=== PATIENT | male | born 1980 | race Caucasian/White ===

== ENCOUNTER → 2017-02-20 | Day surgery (SDC) | payer MEDICAID ==
[~2017-02-20] VITALS: Ht 172.7 cm; Wt 54.5 kg
[~2017-02-20] MED LIST: AMPICILLIN 1 GM/NS 100 ML IV SCH; BACT800T5 PO; BELLADONNA ALKALOIDS/OPIUM 60 MG SUPP RECTAL ONE; CHLORHEXIDINE GLUCONATE 2 % 1 PACK (2 CLOTHS) TOPICAL PRN; DEXAMETHASONE SOD PHOS 4 MG/ML VIAL IV ONE; DO NOT ADM ANY ANTICOAGULANT DRUGS PRN; ESMOLOL HCL 100 MG/10 ML VIAL IV ONE; GENTAMICIN INJ 240 MG in SODIUM CHLORIDE 0.9% INJ 100 ML IV SCH; GLYCOPYRROLATE 1 MG/5 ML SYRINGE IV PUSH ONE; INSULIN HUMAN REGULAR 1,000 UNITS/10 ML VIAL SQ PRN; KEPP10002 PEG; LACTATED RINGER'S 1000 ML IV PRN; LIDOCAINE HCL 1% PF 5 ML AMPULE OTHER ONE; METO25TA3 PEG; METOPROLOL TARTRATE 25 MG TAB PO PRN; MORP1SOL3 PEG; MORPHINE SULFATE 2 MG/ML INJ ONE; MORPHINE SULFATE 4 MG/ML INJ IV PRN; NEOSTIGMINE 3 MG/3 ML SYR IV ONE; NITR1SUS2 PO; ONDANSETRON HCL 4 MG/2 ML VIAL IV PUSH ONE; ONDANSETRON HCL 4 MG/2 ML VIAL IV PUSH PRN; PHENYLEPH/NS 1000 MCG/10 ML SYR IV ONE; POVIDONE IODINE 5% (ANTISEPSIS KIT) 4 APPLICATIONS EACH NARE PRN; PROPOFOL 200 MG/20 ML AMP IV ONE; ROCURONIUM INJ 50 MG/5 ML SYRINGE IV PUSH ONE; SODIUM CHLOR 0.9% 250 ML INJ 250 ML IV SCH; SODIUM CHLOR 0.9% 250 ML INJ 250 ML ONE; SODIUM CHLORID 0.9% 500 ML IV PRN; ePHEDrine/NS 25 MG/5 ML SYR IV ONE
[2017-02-20 11:43] LABS: AUTOMATED NEUTROPHIL # 2.8 TH/MM3 (1.8-7.7); BASOPHIL % 0.7 % (0.0-2.0); EOSINOPHIL % 0.9 % (0.0-4.0); HEMATOCRIT 37.7 % (39.0-51.0); HEMO FLAGS DIFF FINAL; LYMPHOCYTE # 2.2 TH/MM3 (1.0-4.8); MEAN CELL VOLUME 93.8 FL (80.0-100.0); MEAN CORPUSCULAR HEMOGLOBIN 33.3 PG (27.0-34.0); MEAN CORPUSCULAR HGB CONC 35.5 % (32.0-36.0); MONO % 6.3 % (0.0-8.0); NEUT % 52.1 % (16.0-70.0); PLATELET COUNT 426 TH/MM3 (150-450); RED BLOOD COUNT 4.02 MIL/MM3 (4.50-5.90); RED CELL DISTRIBUTION WIDTH 14.3 % (11.6-17.2); WHITE BLOOD COUNT 5.4 TH/MM3 (4.0-11.0)
--- NOTE | 2017-02-20 14:08 | PD.OP ---
Operative Report Date of Surgery: Feb 20, 2017 Preoperative Diagnosis: 2 cm bladder calculus Postoperative Diagnosis: Same Procedure: Urethral dilatation, cystoscopy litholapaxy with stone extraction Anesthesia: Gen. LMA Surgeon: Suman Thurman Boiler Fireman(s): None Resident Surgeon: None Operation and Findings: 36-year-old male sustained a traumatic brain injury in the past who developed a 2 cm bladder calculus. Risk and benefits were discussed with the family and the patient and family were willing to proceed. The patient was brought to operating room and identified by myself as Fede Call. His placement dorsal lithotomy position, prepped and draped in usual sterile fashion , received preprocedure antibiotics and general LMA anesthesia was administered. Urethral dilatation was performed starting with a 20 Tanzanian and going up to a 30 Tanzanian urethral sound. Then the 24 Tanzanian rigid nephroscope was passed into the bladder without difficulty. The large bladder stone was visualized. Using the cyber wand, the stone was then fragmented without difficulty and the residual particles were sucked through the tubing. The Elic evacuator was then used to remove any residual stone fragments. A 20 Tanzanian regular Montes was then passed in the bladder without difficulty. The patient tolerated the procedure well and was awoken and transferred to recovery in stable condition. He will follow up on Friday to undergo a void trial in the office. Suman Thurman DO Feb 20, 2017 14:08
[2017-02-20 16:24] VITALS: BP 107/69; PULSE 96; RESP 16; TEMP 96.5; O2SAT 98
== END | disposition home or self-care (01) ==
LOC: HSDC 10:31 → EDSTATUS 12:30
PROVIDERS: ATTEND Urology
DX: N21.0 Calculus in bladder (principal); I10 Essential (primary) hypertension; G40.909 Epilepsy, unspecified, not intractable, without status epilepticus; Z87.820 Personal history of traumatic brain injury; Z87.891 Personal history of nicotine dependence; Z99.3 Dependence on wheelchair; Z79.899 Other long term (current) drug therapy
CPT/HCPCS: 00910; 52317; 82365; 82370; 85025; 88300; J0290; J1100; J1580; J2270; J2370; J2405; J2710; J3010; J7050; J7120

== ENCOUNTER 2017-02-25 09:41 | Inpatient (IN) | payer MEDICAID ==
[2017-02-25] VITALS (15 sets, daily range): BP systolic 98–163; BP diastolic 57–78; PULSE 56–130; RESP 16–38; TEMP 97.5–100.3; O2SAT 90–100
[~2017-02-25] VITALS: Ht 175.3 cm; Wt 57.5 kg
[~2017-02-25 09:41] MED LIST changes: -AMPICILLIN 1 GM/NS 100 ML IV SCH; -BELLADONNA ALKALOIDS/OPIUM 60 MG SUPP RECTAL ONE; -CHLORHEXIDINE GLUCONATE 2 % 1 PACK (2 CLOTHS) TOPICAL PRN; -DEXAMETHASONE SOD PHOS 4 MG/ML VIAL IV ONE; -DO NOT ADM ANY ANTICOAGULANT DRUGS PRN; -ESMOLOL HCL 100 MG/10 ML VIAL IV ONE; -GENTAMICIN INJ 240 MG in SODIUM CHLORIDE 0.9% INJ 100 ML IV SCH; -GLYCOPYRROLATE 1 MG/5 ML SYRINGE IV PUSH ONE; -INSULIN HUMAN REGULAR 1,000 UNITS/10 ML VIAL SQ PRN; -LACTATED RINGER'S 1000 ML IV PRN; -LIDOCAINE HCL 1% PF 5 ML AMPULE OTHER ONE; -METOPROLOL TARTRATE 25 MG TAB PO PRN; -MORPHINE SULFATE 2 MG/ML INJ ONE; -MORPHINE SULFATE 4 MG/ML INJ IV PRN; -NEOSTIGMINE 3 MG/3 ML SYR IV ONE; -NITR1SUS2 PO; -ONDANSETRON HCL 4 MG/2 ML VIAL IV PUSH ONE; -ONDANSETRON HCL 4 MG/2 ML VIAL IV PUSH PRN; -PHENYLEPH/NS 1000 MCG/10 ML SYR IV ONE; -POVIDONE IODINE 5% (ANTISEPSIS KIT) 4 APPLICATIONS EACH NARE PRN; -PROPOFOL 200 MG/20 ML AMP IV ONE; -ROCURONIUM INJ 50 MG/5 ML SYRINGE IV PUSH ONE; -SODIUM CHLOR 0.9% 250 ML INJ 250 ML IV SCH; -SODIUM CHLOR 0.9% 250 ML INJ 250 ML ONE; -SODIUM CHLORID 0.9% 500 ML IV PRN; -ePHEDrine/NS 25 MG/5 ML SYR IV ONE
--- NOTE | 2017-02-25 09:57 | PD ---
HPI Chief Complaint: Fever Time Seen by Provider: 09:56 Travel History International Travel<30 days: No Contact w/Intl Traveler<30days: No Traveled to known affect area: No History of Present Illness HPI 36-year-old male with history of traumatic brain injury, posttraumatic encephalopathy, status post craniotomy, bedridden, G-tube fed was sent from his urologist office when they pulled the Montes out noticed her urine to be grossly abnormal secondary to hematuria and clots and a temperature of more than 100 in the office. Patient is here with his mother, sister and the nurse who is the youtuber. He seems to be in distress. Patient is nonverbal. As per the sister who is giving most of the history he has upper extremity contractures but usually can look at you when you're talking and seems to understand but today he seems to be in pain and oblivious to the surroundings. He was tachycardic in triage. Rectal temperature was high. His last tube feed was this morning. Patient is unable to give any history. Patient has history of kidney stones and had a procedure done to remove the stone and was at the urologist office today to get the Montes taken out. [facility] Past Medical History Narrative Medical List of his past medical, surgical, social and family history is reviewed from the nursing note. Arthritis: No Asthma: No Autoimmune Disease: No Heart Rhythm Problems: No Cancer: No Cardiovascular Problems: No High Cholesterol: No Chest Pain: No Congestive Heart Failure: No COPD: No Cerebrovascular Accident: No Diabetes: No Endocrine: No Gastrointestinal Disorders: Yes (Constipation) GERD: No Genitourinary: No Headaches: Yes Hiatal Hernia: No Immune Disorder: No Kidney Stones: No Musculoskeletal: Yes (Limited ROM UE>LE) Neurologic: Yes (TBI) Psychiatric: No Respiratory: Yes (Needs occasional suctionning at home) Migraines: No Renal Failure: No Seizures: Yes Sleep Apnea: No Thyroid Disease: No Ulcer: No Tetanus Vaccination: < 5 Years Influenza Vaccination: Yes Past Surgical History Abdominal Surgery: No Cardiac Surgery: No Ear Surgery: No Endocrine Surgery: No Eye Surgery: No Genitourinary Surgery: Yes (stones removed from bladder) Neurologic Surgery: Yes Oral Surgery: No Thoracic Surgery: No Other Surgery: Yes (Craniotomy, Tracheotomy and PEG tube placement) Social History Alcohol Use: No Tobacco Use: No Substance Use: No Allergies-Medications (Allergen,Severity, Reaction): Coded Allergies: levofloxacin (Unverified Allergy, Unknown, 02/25/17) Comments List of his allergies reviewed from the nursing note. Reported Meds & Prescriptions Reported Meds & Active Scripts Active Reported Morphine Liq (Morphine Sulfate) 10 Mg/5 Ml Liq 5 Mg PEG Q4H Keppra (Levetiracetam) 1,000 Mg Tab 1,000 Mg PEG BID Metoprolol Tartrate 25 Mg Tab 25 Mg PEG BID Narrative Medication List of his home medications reviewed from the nursing note. Review of Systems Except as stated in HPI: all other systems reviewed are Neg Physical Exam Narrative GENERAL: Severe posttraumatic encephalopathy, bedbound, contractures, nonverbal , altered mental status which is worse than the baseline SKIN: Focused skin assessment warm/dry. HEAD: Right hemisphere craniotomy with missing large skull EYES: Pupils equal and round. Some corneal dullness. No scleral icterus. No injection or drainage. ENT: No nasal bleeding or discharge. Mucous membranes pink and moist. NECK: Trachea midline. No JVD. CARDIOVASCULAR: Regular rate and rhythm. No murmur appreciated. RESPIRATORY: No accessory muscle use. Clear to auscultation. Breath sounds equal bilaterally. GASTROINTESTINAL: Abdomen soft, non-tender, nondistended. Hepatic and splenic margins not palpable. MUSCULOSKELETAL: No obvious deformities. No clubbing. No cyanosis. No edema. NEUROLOGICAL: Severe posttraumatic encephalopathy, nonverbal, baseline GCS of 9- 10 PSYCHIATRIC: Appropriate mood and affect; insight and judgment normal. Data Data Last Documented VS Vital Signs Date Time Temp Pulse Resp B/P (MAP) Pulse Ox O2 Delivery O2 Flow Rate FiO2 02/25/17 12:00 68 16 107/59 (75) 100 Nasal Cannula 3.00 02/25/17 11:00 100.3 Orders Orders Complete Blood Count With Diff (02/25/17 10:10) Comprehensive Metabolic Panel (02/25/17 10:10) Lactic Acid Sepsis Protocol (02/25/17 10:10) Urinalysis - C+S If Indicated (02/25/17 10:10) Blood Culture (02/25/17 10:10) Chest, Single Ap (02/25/17 10:10) Blood Glucose (02/25/17 10:10) Ecg Monitoring (02/25/17 10:10) Iv Access Insert/Monitor (02/25/17 10:10) Oximetry (02/25/17 10:10) Oxygen Administration (02/25/17 10:10) Vancomycin Inj (Vancomycin Inj) (02/25/17 10:10) Piperacil-Tazo 4.5 Gm Premix (Zosyn 4.5 (02/25/17 10:10) Sodium Chlor 0.9% 1000 Ml Inj (Ns 1000 M (02/25/17 10:10) Sodium Chlor 0.9% 1000 Ml Inj (Ns 1000 M (02/25/17 10:10) Morphine Inj (Morphine Inj) (02/25/17 10:15) Urinary Catheter Insert/Apply (02/25/17 10:14) Urine Culture (02/25/17 11:11) Admit Order (Ed Use Only) (02/25/17 12:05) Labs Laboratory Tests Test 02/25/17 09:58 02/25/17 11:11 White Blood Count 8.1 TH/MM3 Red Blood Count 4.06 MIL/MM3 Hemoglobin 13.0 GM/DL Hematocrit 39.0 % Mean Corpuscular Volume 96.0 FL Mean Corpuscular Hemoglobin 32.0 PG Mean Corpuscular Hemoglobin Concent 33.3 % Red Cell Distribution Width 13.3 % Platelet Count 339 TH/MM3 Mean Platelet Volume 8.5 FL Neutrophils (%) (Auto) 71.5 % Lymphocytes (%) (Auto) 22.1 % Monocytes (%) (Auto) 5.4 % Eosinophils (%) (Auto) 0.3 % Basophils (%) (Auto) 0.7 % Neutrophils # (Auto) 5.8 TH/MM3 Lymphocytes # (Auto) 1.8 TH/MM3 Monocytes # (Auto) 0.4 TH/MM3 Eosinophils # (Auto) 0.0 TH/MM3 Basophils # (Auto) 0.1 TH/MM3 CBC Comment DIFF FINAL Differential Comment Blood Urea Nitrogen 15 MG/DL Creatinine 0.94 MG/DL Random Glucose 120 MG/DL Total Protein 7.9 GM/DL Albumin 4.1 GM/DL Calcium Level 8.9 MG/DL Alkaline Phosphatase 78 U/L Aspartate Amino Transf (AST/SGOT) 27 U/L Alanine Aminotransferase (ALT/SGPT) 26 U/L Total Bilirubin 0.7 MG/DL Sodium Level 130 MEQ/L Potassium Level 4.1 MEQ/L Chloride Level 97 MEQ/L Carbon Dioxide Level 22.1 MEQ/L Anion Gap 11 MEQ/L Estimat Glomerular Filtration Rate 91 ML/MIN Lactic Acid Level 2.4 mmol/L Urine Color DARK-RED Urine Turbidity CLOUDY Urine pH 8.0 Urine Specific [place] 1.017 Urine Protein 100 mg/dL Urine Glucose (UA) NEG mg/dL Urine Ketones NEG mg/dL Urine Occult Blood LARGE Urine Nitrite NEG Urine Bilirubin NEG Urine Urobilinogen LESS THAN 2.0 MG/DL Urine Leukocyte Esterase MOD Urine RBC /hpf Urine WBC 109 /hpf Urine Bacteria RARE /hpf Microscopic Urinalysis Comment CATH-CULTURE IND MDM Medical Decision Making Medical Screen Exam Complete: Yes Emergency Medical Condition: Yes Medical Record Reviewed: Yes Differential Diagnosis Sepsis, UTI, electrolyte abnormality Narrative Course 12:03 PM patient was worked up as well as treated as per sepsis protocol. He received IV Zosyn and vancomycin. UA suggestive of severe UTI and hematuria. I 've asked the nurse reinsert the Montes. Awaiting for the hospitalist to call back for admission. Critical Care Narrative Aggregate critical care time was 30 minutes. Time to perform other separately billable procedures was not included in the critical care time. My time did not include minutes spent treating any other patients simultaneously or on activities that did not directly contribute to the patient's treatment. The services I provided to this patient were to treat and/or prevent clinically significant deterioration that could result in: Sepsis, sepsis protocol I provided critical care services requiring my management, as noted below: Chart data review, documentation time, medication orders and management, vital sign assessments/reviewing monitor data, ordering and reviewing lab tests, ordering and interpreting/reviewing x-rays and diagnostic studies, care of the patient and discussion of the patient with the admitting physicians. Procedures EKG Prior to Arrival: No Diagnosis Primary Impression: UTI (urinary tract infection) Qualified Codes: N39.0 - Urinary tract infection, site not specified; R31.9 - Hematuria, unspecified Additional Impressions: Sepsis Qualified Codes: A41.9 - Sepsis, unspecified organism Hematuria Qualified Codes: R31.9 - Hematuria, unspecified Admitting Information Admitting Physician Requests: Admit Scripts Nitrofurantoin Liq (Nitrofurantoin Liq) 25 Mg/5 Ml Susp 100 MG PO BID for Infection, #8 ML 0 Refills Take 100mg 2x/day for 4 days Prov: Elsa Flores MD R3 02/27/17 Eli Bledsoe MD Feb 25, 2017 09:57
[2017-02-25] MEDS ORDERED: PIPERACIL-TAZO 4.5 GM PREMIX 100 ML IV STA (10:10)
[2017-02-25] MEDS ORDERED: VANCOMYCIN INJ 1,000 MG in SODIUM CHLOR 0.9% 250 ML INJ 250 ML IV STA (10:10)
[2017-02-25] MEDS ORDERED: SODIUM CHLOR 0.9% 1000 ML INJ 800 ML IV ONE (10:10)
[2017-02-25] MEDS ORDERED: SODIUM CHLOR 0.9% 1000 ML INJ 1,000 ML IV ONE (10:10)
[2017-02-25] MEDS ORDERED: MORPHINE SULFATE 4 MG/ML INJ IV PUSH ONE (10:15)
[2017-02-25 10:39] LABS: AUTOMATED NEUTROPHIL # 5.8 TH/MM3 (1.8-7.7); BASOPHIL # 0.1 TH/MM3 (0-0.2); BASOPHIL % 0.7 % (0.0-2.0); EOSINOPHIL % 0.3 % (0.0-4.0); HEMO FLAGS DIFF FINAL; LYMPH % 22.1 % (9.0-44.0); LYMPHOCYTE # 1.8 TH/MM3 (1.0-4.8); MEAN CORPUSCULAR HGB CONC 33.3 % (32.0-36.0); MONO % 5.4 % (0.0-8.0); NEUT % 71.5 % (16.0-70.0); PLATELET COUNT 339 TH/MM3 (150-450); RED BLOOD COUNT 4.06 MIL/MM3 (4.50-5.90); RED CELL DISTRIBUTION WIDTH 13.3 % (11.6-17.2); WHITE BLOOD COUNT 8.1 TH/MM3 (4.0-11.0)
[2017-02-25 11:03] LABS: ANION GAP 11 MEQ/L (5-15); AST (GOT) 27 U/L (15-37); BICARBONATE 22.1 MEQ/L (21.0-32.0); BLOOD UREA NITROGEN 15 MG/DL (7-18); CHLORIDE 97 MEQ/L (98-107); GLOMERULAR FILTRATION RATE 91 ML/MIN (>89); POTASSIUM 4.1 MEQ/L (3.5-5.1); SODIUM (NA) 130 MEQ/L (136-145)
[2017-02-25 11:06] LABS: ALKALINE PHOSPHATASE 78 U/L (45-117); ALT (GPT) 26 U/L (12-78); TOTAL BILIRUBIN ADULT 0.7 MG/DL (0.2-1.0)
--- NOTE | 2017-02-25 11:07 | RADRPT ---
EXAM DATE/TIME: 02/25/2017 10:38 [place] COMPARISON: CHEST SINGLE AP, May 19, 2016, 11:43. INDICATIONS : Congestion. MEDICAL HISTORY : Seizures. Head trauma with tramatic brain injury SURGICAL HISTORY : Neurologic surgery. Craniotomy. Tracheostomy. PEG tube placement. ENCOUNTER: Initial ACUITY: 1 week PAIN SCORE: Non-responsive. LOCATION: Bilateral chest FINDINGS: A single view of the chest demonstrates the lungs to be symmetrically aerated without evidence of mas s, infiltrate or effusion. The cardiomediastinal contours are unremarkable. Osseous structures are intact. CONCLUSION: 1. No acute cardiopulmonary disease. Anderson Diaz MD on February 25, 2017 at 10:56 Board Certified Radiologist. This report was verified electronically.
[2017-02-25 11:44] LABS: BACTERIA, URINE RARE /hpf; BLOOD, URINE LARGE (NEG); COMMENT (UR) CATH-CULTURE IND; CULTURE IF INDICATED CATH CULTURE IND; GLUCOSE,URINE NEG (NEG); KETONE, URINE NEG (NEG); NITRITE,URINE NEG (NEG); URINE COLOR DARK-RED (YELLW/STRAW)
--- NOTE | 2017-02-25 12:16 | HHI.HP ---
HPI Service Family Medicine Primary Care Physician Non-Staff Admission Diagnosis sepsis, UTI, hematuria Diagnoses: International Travel<30 Days: No Contact w/Intl Traveler<30days: No Known Affected Area: No History of Present Illness 36 y/o M, s/p urethral dilation and cystoscopy for large bladder stone on 02/20, resents with gross bleeding from indwelling catheter. The patient has a history of traumatic brain injury after a fall from a roof in 2014 and is status post right hemicraniectomy craniectomy. The patient has very little functioning and the history of present illness is obtained from the mother. The mother states that since the cystoscopy on 02/20 the patient has had a small amount of gross bleeding every day from his catheter. She started noticing yesterday that the patient seemed to be in more pain- she can tell the patient is in pain when he brings his arms into himself and becomes more stiff. He took his temperature yesterday and he was 100.3 took his temperature this morning and he was 100.5. She noticed this morning to small clots coming out of the catheter as well and decided to bring him in. She has noticed that he has had some congestion and some thick drooling out of his mouth, but she has not noticed any change in his breathing. He has continued to feed normally through his PEG tube. Loose stools but this is normal for him. (Radha Shah MD R2) Review of Systems Constitutional: DENIES: Fatigue, Weight gain Endocrine: DENIES: Polyuria, Polyphagia Ears, nose, mouth, throat: DENIES: Hearing loss, Vertigo Respiratory: DENIES: Wheezing, Hemoptysis Cardiovascular: DENIES: Chest pain, Palpitations Gastrointestinal: DENIES: Black stools, Bloody stools Genitourinary: DENIES: Urinary frequency Musculoskeletal: DENIES: Muscle aches Integumentary: DENIES: Abnormal pigmentation Hematologic/lymphatic: DENIES: Bruising Immunologic/allergic: DENIES: Eczema Psychiatric: DENIES: Anxiety, Confusion (Radha Shah MD R2) Past Family Social History Past Medical History Hx of bladder stone with removal via cystoscopy 02/20 hx of gastritis infection in october with hospitalization for 2 weeks Traumatic brain injury in 2014 History of kidney stones History of seizures. Past Surgical History Hemicraniectomy right-sided 2014. 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 Father with hypertension. Social History Previous smoker, previous drinker, quit after traumatic brain injury in 2014. Never any history of illicit drugs. (Radha Shah MD R2) Physical Exam Vital Signs Vital Signs Date Time Temp Pulse Resp B/P (MAP) Pulse Ox O2 Delivery O2 Flow Rate FiO2 02/25/17 11:11 100 Room Air 02/25/17 11:11 16 100 Room Air 02/25/17 09:55 99 Nasal Cannula 3.00 02/25/17 09:45 99.9 130 38 163/78 (106) 90 Room Air Physical Exam GENERAL: Patient is laying in bed and does follow people with eye contact, he is nonverbal, does appear to be uncomfortable, has periods where he brings his arms and very tight and his face turns red as if he is holding his breath and pain - his normal response to pain per mother SKIN: No rashes, ecchymoses or lesions. Cool and dry. HEAD: Atraumatic. Normocephalic. No temporal or scalp tenderness. EYES: Pupils equal round and reactive. Extraocular motions intact. sclera are red and injected. ENT: Nose without bleeding, purulent drainage or septal hematoma. Throat without erythema - difficult to visualize NECK: Trachea midline. No JVD or lymphadenopathy. Supple, nontender, no meningeal signs. CARDIOVASCULAR: Regular rate and rhythm without murmurs, gallops, or rubs. RESPIRATORY: Clear to auscultation on anterior as tolerated. Breath sounds equal bilaterally. No wheezes, rales, or rhonchi. GASTROINTESTINAL: Abdomen soft, non-tender, nondistended. No hepato-splenomegaly , or palpable masses. No guarding. PEG tube placed MUSCULOSKELETAL: Extremities without clubbing, cyanosis, or edema. No joint tenderness, effusion, or edema noted. No calf tenderness. Negative Homans sign bilaterally. NEUROLOGICAL: Awake and alert. Cannot assess cranial nerves, motor, or sensory due to affect Laboratory Laboratory Tests Test 02/25/17 09:58 02/25/17 11:11 White Blood Count 8.1 Red Blood Count 4.06 Hemoglobin 13.0 Hematocrit 39.0 Mean Corpuscular Volume 96.0 Mean Corpuscular Hemoglobin 32.0 Mean Corpuscular Hemoglobin Concent 33.3 Red Cell Distribution Width 13.3 Platelet Count 339 Mean Platelet Volume 8.5 Neutrophils (%) (Auto) 71.5 Lymphocytes (%) (Auto) 22.1 Monocytes (%) (Auto) 5.4 Eosinophils (%) (Auto) 0.3 Basophils (%) (Auto) 0.7 Neutrophils # (Auto) 5.8 Lymphocytes # (Auto) 1.8 Monocytes # (Auto) 0.4 Eosinophils # (Auto) 0.0 Basophils # (Auto) 0.1 CBC Comment DIFF FINAL Differential Comment Blood Urea Nitrogen 15 Creatinine 0.94 Random Glucose 120 Total Protein 7.9 Albumin 4.1 Calcium Level 8.9 Alkaline Phosphatase 78 Aspartate Amino Transf (AST/SGOT) 27 Alanine Aminotransferase (ALT/SGPT) 26 Total Bilirubin 0.7 Sodium Level 130 Potassium Level 4.1 Chloride Level 97 Carbon Dioxide Level 22.1 Anion Gap 11 Estimat Glomerular Filtration Rate 91 Lactic Acid Level 2.4 Urine Color DARK-RED Urine Turbidity CLOUDY Urine pH 8.0 Urine Specific [place] 1.017 Urine Protein 100 Urine Glucose (UA) NEG Urine Ketones NEG Urine Occult Blood LARGE Urine Nitrite NEG Urine Bilirubin NEG Urine Urobilinogen LESS THAN 2.0 Urine Leukocyte Esterase MOD Urine RBC Urine WBC 109 Urine Bacteria RARE Microscopic Urinalysis Comment CATH-CULTURE IND Date/Time Source Procedure Growth Status 02/25/17 10:15 Blood Peripheral Aerobic Blood Culture Pending Received 02/25/17 10:15 Blood Peripheral Anaerobic Blood Culture Pending Received 02/25/17 11:11 Urine Catheterized Urine Urine Culture Pending Received (Radha Shah MD R2) Result Diagram: 02/25/1758 02/25/1758 Caprini VTE Risk Assessment Caprini VTE Risk Assessment: No/Low Risk (score <= 1) Caprini Risk Assessment Model Point Value = 1 Point Value = 2 Point Value = 3 Point Value = 5 Age 41-60 Minor surgery BMI > 25 kg/m2 Swollen legs Varicose veins or History of unexplained or recurrent spontaneous Oral contraceptives or hormone replacement Sepsis (< 1 month) Serious lung disease, including pneumonia (< 1 month) Abnormal pulmonary function Acute myocardial infarction Congestive heart failure (< 1 month) History of inflammatory bowel disease Medical patient at bed rest Age 61-74 Arthroscopic surgery Major open surgery (> 45 min) Laparoscopic surgery (> 45 min) Malignancy Confined to bed (> 72 hours) Immobilizing plaster cast Central venous access Age >= 75 History of VTE Family history of VTE Factor V Leiden Prothrombin [id number] Lupus anticoagulant Anticardiolipin antibodies Elevated serum homocysteine Heparin-induced thrombocytopenia Other congenital or acquired thrombophilia Stroke (< 1 month) Elective arthroplasty Hip, pelvis, or leg fracture Acute spinal cord injury (< 1 month) Prophylaxis Regimen Total Risk Factor Score Risk Level Prophylaxis Regimen 0-1 Low Early ambulation 2 Moderate Order ONE of the following: *Sequential Compression Device (SCD) *Heparin 5000 units SQ BID 3-4 Higher Order ONE of the following medications: *Heparin 5000 units SQ TID *Enoxaparin/Lovenox 40 mg SQ daily (WT < 150 kg, CrCl > 30 mL/min) *Enoxaparin/Lovenox 30 mg SQ daily (WT < 150 kg, CrCl > 10-29 mL/min) *Enoxaparin/Lovenox 30 mg SQ BID (WT < 150 kg, CrCl > 30 mL/min) AND/OR *Sequential Compression Device (SCD) 5 or more Highest Order ONE of the following medications: *Heparin 5000 units SQ TID (Preferred with Epidurals) *Enoxaparin/Lovenox 40 mg SQ daily (WT < 150 kg, CrCl > 30 mL/min) *Enoxaparin/Lovenox 30 mg SQ daily (WT < 150 kg, CrCl > 10-29 mL/min) *Enoxaparin/Lovenox 30 mg SQ BID (WT < 150 kg, CrCl > 30 mL/min) AND *Sequential Compression Device (SCD) (Radha Shah MD R2) Assessment and Plan Assessment and Plan 36 y/o M, s/p TBI with ICH and subsequent encephalopathy in 2014, status post cystoscopy for bladder stone removal, presents with clots and hematuria from catheter and fever. Patient meeting sepsis criteria on arrival; temp 100.5, heart rate 130, lactic acid 2.4, and positive UA. Discussed Condition With Dr. Belle (Radah Shah MD R2) Attending Attestation THIS CASE WAS DISCUSSED WITH THE RESIDENT PHYSICIANS. I HAVE REVIEWED THE RECORD AND AGREE WITH THE ABOVE NOTE AND PLAN OF CARE WAS DISCUSSED. I HAVE AUTHORIZED THE ORDER FOR ADMISSION TO AN IN-PATIENT STATUS. (Ronald Arce MD) Problem List: (1) Catheter-associated urinary tract infection ICD Codes: T83.511A - Infection and inflammatory reaction due to indwelling urethral catheter, initial encounter; N39.0 - Urinary tract infection, site not specified Status: Acute Plan: Sepsis criteria with source; recently urethral catheterization, UA; dark red color, cloudy, large blood, moderate leuk esterase IV fluids at 1.5 maintenance Continue vancomycin 1 g every 12 hours Continue Zosyn 4.5 g IV every 6 hours Follow-up urine cultures (2) Sepsis ICD Codes: A41.9 - Sepsis, unspecified organism Status: Acute Plan: Temp 100.5, pulse 130, lactic acid 2.4+ evidence of source of infection ( UTI) Continue IV fluids Continue sepsis protocol Trend lactic acid; 2.4 Creat .94 WNL f/u coags f/u blood cx f/u ucx (3) Seizure disorder ICD Codes: G40.909 - Epilepsy, unspecified, not intractable, without status epilepticus Status: Chronic Plan: Continue Keppra 1 g per PEG tube twice a day (4) Hyponatremia ICD Codes: E87.1 - Hypo-osmolality and hyponatremia Status: Acute Plan: Sodium 130 on admission Continue IV fluids Follow-up BMP tomorrow (5) Chronic pain ICD Codes: G89.29 - Other chronic pain Status: Chronic Plan: Continue morphine liquid 5 mg per PEG tube every 4 hours Continue metoprolol 25 mg per PEG tube twice a day (6) fen/ppx Status: Acute Plan: Fluids: Normal saline at 110 mL per hour Electrolytes: Hyponatremic, continue IV fluids, follow-up BMP tomorrow Nutrition per peg tube:Jevity 40 mL per hour, with free water flushes 120 mL every 6 hours. DVT prophylaxis: Bleeding from urethra, avoid antiplatelet agents at this time, SCDs (Radha Shah MD R2) Physician Certification 2 Midnight Certification Type: Admission for Inpatient Services Order for Inpatient Services The services are ordered in accordance with Medicare regulations or non- Medicare payer requirements, as applicable. In the case of services not specified as inpatient-only, they are appropriately provided as inpatient services in accordance with the 2-midnight benchmark. Estimated LOS (days): 2 days is the estimated time the patient will need to remain in the hospital, assuming treatment plan goals are met and no additional complications. Post-Hospital Plan: Home (Radha Shah MD R2) Problem Qualifiers (1) Catheter-associated urinary tract infection: (2) Chronic pain: Qualified Codes: G89.29 - Other chronic pain Radha Shah MD R2 Feb 25, 2017 12:16 Ronald Arce MD Feb 25, 2017 14:19
[2017-02-25 12:32] LABS: LACTIC ACID GHOST NOT REPORTABLE
[2017-02-25] MEDS ORDERED: ACETAMINOPHEN 325 MG TAB PO PRN (12:45)
[2017-02-25] MEDS ORDERED: ONDANSETRON HCL 4 MG/2 ML VIAL IVP PRN (12:45)
[2017-02-25] MEDS ORDERED: NALOXONE HCL 0.4 MG/ML AMP IV PUSH PRN (12:45)
[2017-02-25] MEDS ORDERED: BISACODYL 10 MG SUPP RECTAL PRN (12:45)
[2017-02-25] MEDS ORDERED: SENNOSIDES 8.6 MG TAB PO PRN (12:45)
[2017-02-25] MEDS ORDERED: LACTULOSE SYRUP 20 GM/30 ML CUP PO PRN (12:45)
[2017-02-25] MEDS ORDERED: SODIUM CHLORIDE 0.9% FLUSH 10 ML FLUSH IV FLUSH PRN (12:45)
[2017-02-25] MEDS ORDERED: MAGNESIUM HYDROXIDE SUSP 30 ML CUP PO PRN (12:45)
[2017-02-25] MEDS: SODIUM CHLOR 0.9% 1000 ML INJ 1,000 ML IV SCH ×2 (13:32→22:56)
--- NOTE | 2017-02-25 13:33 | MB ---
cc: ANGI RAY DATE OF CONSULTATION 02/25/2017 HISTORY OF PRESENT ILLNESS A 35-year-old male who presents with fever and some hematuria after undergoing a cystolitholapaxy four days ago. 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 He is on PEG tube feedings with history of a tracheostomy and was seen in the office today and had low-grade fever over the last two days and was instructed to come the emergency room. The family has noted intermittent gross hematuria. He presently has a Montes and it is draining clear urine at present. MEDICAL HISTORY 1. Traumatic brain injury. 2. History of nephrolithiasis. 3. History of seizures. PAST SURGICAL HISTORY 1. Status post cystolitholapaxy last . 2. History of craniotomy. 3. PEG tube. 4. Tracheostomy. ALLERGIES He is allergic to Levaquin. FAMILY HISTORY Noted for diabetes and hypertension. SOCIAL HISTORY Prior smoker and drinker. No history of illicit drug use. REVIEW OF SYSTEMS Unable obtain due the patient's clinical status. PHYSICAL EXAMINATION VITAL SIGNS: Temperature 99.9, pulse 130, respiratory rate 38, pulse ox 100% on room air. GENERAL: He is a thin 36-year-old male in no acute distress. HEENT: Evidence of craniotomy in the past on the right side. Pupils are equal and round. NECK: Supple HEART RATE: Sinus tachycardia. LUNGS: Breath sounds bilaterally. ABDOMEN: Soft, nontender, nondistended. : Montes. Uncircumcised phallus. Clear urine draining. Testes are descended. EXTREMITIES: No cyanosis, clubbing or edema. LABORATORY DATA White count is 8.1, hemoglobin 13.0, hematocrit 39.0, platelet count of 339. Sodium 130, potassium 4.1, chloride 97, CO2 22.1, BUN 15, creatinine 0.94, glucose of 120, lactic acid is 2.4. Urinalysis shows large blood, nitrites negative. Leukocyte esterase is moderate. CHEST X-RAY Shows no acute cardiopulmonary disease. ASSESSMENT This is a 36-year-old male status post cystolitholapaxy four days ago with evidence of fever and possible sepsis. PLAN 1. Continue IV fluids and IV antibiotics for now. 2. Maintain Montes catheter. 3. Follow laboratory values. 4. We will continue to follow with you. Thank you for the consult. Angi MCPHERSON/TAMARA /1:15 PM /1:23 PM
[2017-02-25] MEDS ORDERED: Vancomycin Consult Pharmacy 1 EA OTHER SCH (14:00)
[2017-02-25 14:17] LABS: INTERNATIONAL NORMALIZED RATIO 1.1 RATIO
--- NOTE | 2017-02-25 14:19 | HHI.HP ---
HPI Service Family Medicine Primary Care Physician Non-Staff Admission Diagnosis sepsis, UTI, hematuria Diagnoses: (1) Catheter-associated urinary tract infection (2) Sepsis (3) Seizure disorder (4) Hyponatremia (5) Chronic pain (6) fen/ppx International Travel<30 Days: No Contact w/Intl Traveler<30days: No Known Affected Area: No History of Present Illness 36 yo M presenting to the hospital with a UTI and sepsis. Has a history of medical brain injury after fall from a roof in 2014 and status post right hemicraniectomy and is bedbound. He recently had a urethral dilatation with cystoscopy for large bladder stone on 02/20/[address] Thurman and return to his office to have the Montes catheter removed yesterday with a large amount of blood and discolored urine noticed. He continued to pass bloody urine was brought to the emergency department, because mother also seem to think that the patient was in more pain and had an elevated temperature of 100.3-100.5 at home. In the emergency department, he was found to have a urinary tract infection and an elevated lactic acid. He was started on broad-spectrum antibiotics with vancomycin and Zosyn and blood cultures and urine cultures were collected and sent. Mother also notices he has had some congestion and some thick drooling out of his mouth, but she has not noticed any change in his breathing. He has continued to feed normally through his PEG tube. She does state that he has had loose stools but this is normal for him. Review of Systems ROS Limitations: Clinical Condition Past Family Social History Past Medical History Hx of bladder stone with removal via cystoscopy 02/20 hx of gastritis infection in october with hospitalization for 2 weeks Traumatic brain injury in 2014 History of kidney stones History of seizures. Past Surgical History Hemicraniectomy right-sided 2014. 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 Father with hypertension. Social History Previous smoker, previous drinker, quit after traumatic brain injury in 2014. Never any history of illicit drugs. Physical Exam Vital Signs Vital Signs Date Time Temp Pulse Resp B/P (MAP) Pulse Ox O2 Delivery O2 Flow Rate FiO2 02/25/17 14:01 99 Nasal Cannula 3.00 02/25/17 11:11 100 Room Air 02/25/17 11:11 16 100 Room Air 02/25/17 09:55 99 Nasal Cannula 3.00 02/25/17 09:45 99.9 130 38 163/78 (106) 90 Room Air Physical Exam GENERAL: Debilitated patient, lying in bed in no obvious distress. Nonverbal. Upper extremities are contracted. He is able to make eye contact but is unable to communicate. SKIN: No rashes, ecchymoses or lesions. Cool and dry. HEAD: Large right sided defect from hemicraniectomy but appears well-healed EYES: Pupils equal round and reactive. NECK: Trachea midline. No JVD or lymphadenopathy. Supple, nontender, no meningeal signs. CARDIOVASCULAR: Regular rate and rhythm without murmurs, gallops, or rubs. RESPIRATORY: Anteriorly clear to auscultation GASTROINTESTINAL: Abdomen soft, non-tender, nondistended. PEG tube in place on the left side of the abdomen without any drainage or erythema MUSCULOSKELETAL: Extremities without clubbing, cyanosis, or edema. NEUROLOGICAL: Awake but unable to communicate, unable to assess orientation Laboratory Laboratory Tests Test 02/25/17 09:58 02/25/17 11:11 02/25/17 13:35 White Blood Count 8.1 Red Blood Count 4.06 Hemoglobin 13.0 Hematocrit 39.0 Mean Corpuscular Volume 96.0 Mean Corpuscular Hemoglobin 32.0 Mean Corpuscular Hemoglobin Concent 33.3 Red Cell Distribution Width 13.3 Platelet Count 339 Mean Platelet Volume 8.5 Neutrophils (%) (Auto) 71.5 Lymphocytes (%) (Auto) 22.1 Monocytes (%) (Auto) 5.4 Eosinophils (%) (Auto) 0.3 Basophils (%) (Auto) 0.7 Neutrophils # (Auto) 5.8 Lymphocytes # (Auto) 1.8 Monocytes # (Auto) 0.4 Eosinophils # (Auto) 0.0 Basophils # (Auto) 0.1 CBC Comment DIFF FINAL Differential Comment Blood Urea Nitrogen 15 Creatinine 0.94 Random Glucose 120 Total Protein 7.9 Albumin 4.1 Calcium Level 8.9 Alkaline Phosphatase 78 Aspartate Amino Transf (AST/SGOT) 27 Alanine Aminotransferase (ALT/SGPT) 26 Total Bilirubin 0.7 Sodium Level 130 Potassium Level 4.1 Chloride Level 97 Carbon Dioxide Level 22.1 Anion Gap 11 Estimat Glomerular Filtration Rate 91 Lactic Acid Level 2.4 Urine Color DARK-RED Urine Turbidity CLOUDY Urine pH 8.0 Urine Specific [place] 1.017 Urine Protein 100 Urine Glucose (UA) NEG Urine Ketones NEG Urine Occult Blood LARGE Urine Nitrite NEG Urine Bilirubin NEG Urine Urobilinogen LESS THAN 2.0 Urine Leukocyte Esterase MOD Urine RBC Urine WBC 109 Urine Bacteria RARE Microscopic Urinalysis Comment CATH-CULTURE IND Date/Time Source Procedure Growth Status 02/25/17 10:15 Blood Peripheral Aerobic Blood Culture Pending Received 02/25/17 10:15 Blood Peripheral Anaerobic Blood Culture Pending Received 02/25/17 11:11 Urine Catheterized Urine Urine Culture Pending Received Result Diagram: 02/25/17 0958 02/25/17 0958 Imaging Last 48 hours Impressions Chest X-Ray 02/25/17 1010 Signed Impressions: Service Date/Time: Saturday, February 25, 2017 10:38 - CONCLUSION: 1. No acute cardiopulmonary disease. Anderson Diaz MD Septic Shock Reassessment Heart: Regular rate and rhythm Lungs: Clear Skin: Warm, Dry Caprini VTE Risk Assessment Caprini VTE Risk Assessment: No/Low Risk (score <= 1) Caprini Risk Assessment Model Point Value = 1 Point Value = 2 Point Value = 3 Point Value = 5 Age 41-60 Minor surgery BMI > 25 kg/m2 Swollen legs Varicose veins or History of unexplained or recurrent spontaneous Oral contraceptives or hormone replacement Sepsis (< 1 month) Serious lung disease, including pneumonia (< 1 month) Abnormal pulmonary function Acute myocardial infarction Congestive heart failure (< 1 month) History of inflammatory bowel disease Medical patient at bed rest Age 61-74 Arthroscopic surgery Major open surgery (> 45 min) Laparoscopic surgery (> 45 min) Malignancy Confined to bed (> 72 hours) Immobilizing plaster cast Central venous access Age >= 75 History of VTE Family history of VTE Factor V Leiden Prothrombin [id number] Lupus anticoagulant Anticardiolipin antibodies Elevated serum homocysteine Heparin-induced thrombocytopenia Other congenital or acquired thrombophilia Stroke (< 1 month) Elective arthroplasty Hip, pelvis, or leg fracture Acute spinal cord injury (< 1 month) Prophylaxis Regimen Total Risk Factor Score Risk Level Prophylaxis Regimen 0-1 Low Early ambulation 2 Moderate Order ONE of the following: *Sequential Compression Device (SCD) *Heparin 5000 units SQ BID 3-4 Higher Order ONE of the following medications: *Heparin 5000 units SQ TID *Enoxaparin/Lovenox 40 mg SQ daily (WT < 150 kg, CrCl > 30 mL/min) *Enoxaparin/Lovenox 30 mg SQ daily (WT < 150 kg, CrCl > 10-29 mL/min) *Enoxaparin/Lovenox 30 mg SQ BID (WT < 150 kg, CrCl > 30 mL/min) AND/OR *Sequential Compression Device (SCD) 5 or more Highest Order ONE of the following medications: *Heparin 5000 units SQ TID (Preferred with Epidurals) *Enoxaparin/Lovenox 40 mg SQ daily (WT < 150 kg, CrCl > 30 mL/min) *Enoxaparin/Lovenox 30 mg SQ daily (WT < 150 kg, CrCl > 10-29 mL/min) *Enoxaparin/Lovenox 30 mg SQ BID (WT < 150 kg, CrCl > 30 mL/min) AND *Sequential Compression Device (SCD) Assessment and Plan Assessment and Plan 36 y/o M, s/p TBI with ICH and subsequent encephalopathy in 2014, status post cystoscopy for bladder stone removal, presents with clots and hematuria from catheter and fever. Patient meeting sepsis criteria on arrival; temp 100.5, heart rate 130, lactic acid 2.4, and positive UA. Problem List: (1) Catheter-associated urinary tract infection ICD Codes: T83.511A - Infection and inflammatory reaction due to indwelling urethral catheter, initial encounter; N39.0 - Urinary tract infection, site not specified Status: Acute Plan: Sepsis criteria with source; recently urethral catheterization, UA; dark red color, cloudy, large blood, moderate leuk esterase IV fluids at 1.5 maintenance Continue vancomycin 1 g every 12 hours Continue Zosyn 4.5 g IV every 6 hours Urine culture drawn and pending Blood cultures drawn and pending (2) Sepsis ICD Codes: A41.9 - Sepsis, unspecified organism Status: Acute Plan: Temp 100.5, pulse 130, lactic acid 2.4+ evidence of source of infection ( UTI) Continue IV fluids at 1.5 maintenance - Received 1 L bolus 2 in the emergency department Continue sepsis protocol Trend lactic acid; 2.4 Creat .94 WNL f/u coags f/u blood cx f/u ucx (3) Seizure disorder ICD Codes: G40.909 - Epilepsy, unspecified, not intractable, without status epilepticus Status: Chronic Plan: Continue Keppra 1 g per PEG tube twice a day (4) Hyponatremia ICD Codes: E87.1 - Hypo-osmolality and hyponatremia Status: Acute Plan: Sodium 130 on admission Continue IV fluids Follow-up BMP tomorrow (5) Chronic pain ICD Codes: G89.29 - Other chronic pain Status: Chronic Plan: Continue morphine liquid 5 mg per PEG tube every 4 hours Continue metoprolol 25 mg per PEG tube twice a day (6) fen/ppx Status: Acute Plan: Fluids: Normal saline at 110 mL per hour Electrolytes: Hyponatremic, continue IV fluids, follow-up BMP tomorrow Nutrition per peg tube:Jevity 40 mL per hour, with free water flushes 120 mL every 6 hours. DVT prophylaxis: Bleeding from urethra, avoid antiplatelet agents at this time, SCDs Physician Certification 2 Midnight Certification Type: Admission for Inpatient Services Order for Inpatient Services The services are ordered in accordance with Medicare regulations or non- Medicare payer requirements, as applicable. In the case of services not specified as inpatient-only, they are appropriately provided as inpatient services in accordance with the 2-midnight benchmark. Estimated LOS (days): 2 2 days is the estimated time the patient will need to remain in the hospital, assuming treatment plan goals are met and no additional complications. Post-Hospital Plan: Not yet determined Problem Qualifiers (1) Catheter-associated urinary tract infection: (2) Chronic pain: Qualified Codes: G89.29 - Other chronic pain Ronald Arce MD Feb 25, 2017 14:18
[2017-02-25] MEDS: MORPHINE SULFATE ORAL SOLN 10 MG/0.5 ML SYRINGE PEG SCH ×2 (16:21→22:57)
[2017-02-25] MEDS: PIPERACIL-TAZO 4.5 GM PREMIX 100 ML IV SCH ×2 (18:10→22:56)
[2017-02-25] MEDS: levETIRAcetam 500 MG TAB PEG SCH (20:39)
[2017-02-25] MEDS: SODIUM CHLORIDE 0.9% FLUSH 10 ML FLUSH IV FLUSH SCH (20:40)
[2017-02-25] MEDS: METOPROLOL TARTRATE 25 MG TAB PEG SCH (20:40)
[2017-02-25] MEDS: DOCUSATE SODIUM 50 MG/SENNA 8.6 MG TAB PO SCH (20:40)
[2017-02-25] MEDS: VANCOMYCIN INJ 1,000 MG in SODIUM CHLOR 0.9% 250 ML INJ 250 ML IV SCH (20:40)
[2017-02-26] VITALS (21 sets, daily range): BP systolic 87–142; BP diastolic 56–75; PULSE 56–93; RESP 16–20; TEMP 96.4–98.2; O2SAT 97–100
[2017-02-26] MEDS: MORPHINE SULFATE ORAL SOLN 10 MG/0.5 ML SYRINGE PEG SCH ×6 (03:29→22:05)
[2017-02-26] MEDS: PIPERACIL-TAZO 4.5 GM PREMIX 100 ML IV SCH ×3 (04:12→16:50)
[2017-02-26 07:00] LABS: AUTOMATED NEUTROPHIL # 2.2 TH/MM3 (1.8-7.7); EOSINOPHIL # 0.1 TH/MM3 (0-0.4); EOSINOPHIL % 1.7 % (0.0-4.0); HEMO FLAGS DIFF FINAL; LYMPH % 45.9 % (9.0-44.0); LYMPHOCYTE # 2.3 TH/MM3 (1.0-4.8); MEAN CORPUSCULAR HEMOGLOBIN 32.4 PG (27.0-34.0); MEAN CORPUSCULAR HGB CONC 33.4 % (32.0-36.0); MONO % 6.9 % (0.0-8.0); NEUT % 44.5 % (16.0-70.0); PLATELET COUNT 254 TH/MM3 (150-450); RED CELL DISTRIBUTION WIDTH 13.5 % (11.6-17.2)
[2017-02-26 07:06] LABS: ANION GAP 8 MEQ/L (5-15); AST (GOT) 20 U/L (15-37); BICARBONATE 22.3 MEQ/L (21.0-32.0); BLOOD UREA NITROGEN 8 MG/DL (7-18); CHLORIDE 105 MEQ/L (98-107); GLOMERULAR FILTRATION RATE 115 ML/MIN (>89); POTASSIUM 3.7 MEQ/L (3.5-5.1); SODIUM (NA) 135 MEQ/L (136-145)
[2017-02-26 07:11] LABS: ALKALINE PHOSPHATASE 58 U/L (45-117); ALT (GPT) 20 U/L (12-78); TOTAL BILIRUBIN ADULT 0.8 MG/DL (0.2-1.0)
[2017-02-26] MEDS: SODIUM CHLORIDE 0.9% FLUSH 10 ML FLUSH IV FLUSH SCH ×2 (09:00→22:04)
[2017-02-26] MEDS: levETIRAcetam 500 MG TAB PEG SCH ×2 (09:21→22:06)
[2017-02-26] MEDS: DOCUSATE SODIUM 50 MG/SENNA 8.6 MG TAB PO SCH ×2 (09:22→22:06)
[2017-02-26] MEDS: METOPROLOL TARTRATE 25 MG TAB PEG SCH ×2 (09:22→22:06)
[2017-02-26] MEDS: VANCOMYCIN INJ 1,000 MG in SODIUM CHLOR 0.9% 250 ML INJ 250 ML IV SCH ×2 (09:39→22:07)
--- NOTE | 2017-02-26 10:24 | HHI.FPPN ---
Subjective Remarks Pt seen and examined this morning. No acute events overnight. Pts family present at bedside. Pts mother reports that he seems to be significantly improved. His pain seems to be improving. There are no acute concerns. Unable to obtain additional information from patient as he is nonverbal. (Elsa Flores MD R3) Objective Vitals Vital Signs Date Time Temp Pulse Resp B/P (MAP) Pulse Ox O2 Delivery O2 Flow Rate FiO2 02/26/17 09:00 96.4 93 16 142/73 (96) 99 02/26/17 06:00 80 02/26/17 05:00 86 02/26/17 04:29 20 02/26/17 04:00 97.4 89 20 108/65 (79) 100 02/26/17 04:00 68 02/26/17 03:00 73 02/26/17 02:31 97 Nasal Cannula 3.00 02/26/17 02:00 88 02/26/17 01:00 74 02/26/17 00:00 59 02/26/17 00:00 98.2 61 18 87/56 (66) 98 02/25/17 23:00 56 02/25/17 22:00 68 02/25/17 21:00 58 02/25/17 20:00 77 02/25/17 19:45 97.5 67 18 102/76 (85) 100 02/25/17 16:00 68 16 110/62 (78) 97 Nasal Cannula 2.00 02/25/17 14:01 99 Nasal Cannula 3.00 02/25/17 14:00 86 16 115/60 (78) 97 Nasal Cannula 3.00 02/25/17 13:00 76 18 105/57 (73) 97 Nasal Cannula 3.00 02/25/17 12:00 68 16 107/59 (75) 100 Nasal Cannula 3.00 02/25/17 11:11 100 Room Air 02/25/17 11:11 16 100 Room Air 02/25/17 11:00 100.3 92 16 98/61 (73) 98 Nasal Cannula 3.00 I/O 02/25/17 02/25/17 02/25/17 02/26/17 02/26/17 02/26/17 07:00 15:00 23:00 07:00 15:00 23:00 Intake Total 2150 ml 250 ml 3460 ml Output Total 0 ml Balance 2150 ml 250 ml 3460 ml Intake IV Total 2150 ml 250 ml 2800 ml Tube Feeding 360 ml Tube Irrigant 300 ml Output Tube Feeding Residual Discard 0 ml (Elsa Flores MD R3) Result Diagram: 02/26/1752902/26/17529 Objective Remarks GENERAL: Patient is laying in bed, appears to be resting comfortably he is nonverbal, does not appear to be in pain. SKIN: No rashes, ecchymoses or lesions. Cool and dry. HEAD: Atraumatic. Normocephalic. No temporal or scalp tenderness. EYES: Pupils equal round and reactive. Extraocular motions intact. ENT: Nose without bleeding, purulent drainage or septal hematoma. Airway patent. NECK: Trachea midline. No JVD or lymphadenopathy. CARDIOVASCULAR: Regular rate and rhythm without murmurs, gallops, or rubs. RESPIRATORY: Clear to auscultation, anterior lung jasso auscultated. Breath sounds equal bilaterally. No wheezes, rales, or rhonchi. GASTROINTESTINAL: Abdomen soft, non-tender, nondistended. No hepato-splenomegaly , or palpable masses. No guarding. PEG tube in place. MUSCULOSKELETAL: Extremities without clubbing, cyanosis, or edema. No joint tenderness, effusion, or edema noted. No calf tenderness. Negative Homans sign bilaterally. NEUROLOGICAL: Awake and alert. Cannot assess cranial nerves, motor, or sensory. Pt not able to follow complex verbal commands. (Elsa Flores MD R3) A/P Assessment and Plan 36 y/o M, s/p TBI with ICH and subsequent encephalopathy in 2014, status post cystoscopy for bladder stone removal, presents with clots and hematuria from catheter and fever. Patient meeting sepsis criteria on arrival; temp 100.5, heart rate 130, lactic acid 2.4, and positive UA. Discharge Planning Anticipate discharge once urine culture has resulted and pt has been cleared by urology. (Elsa Flores MD R3) Attending Attestation Patient examined and case discussed with resident physicians I have read the above note and agree with the assessment/plan as discussed with me I was involved in all medical decision making for this patient Ronald Arce M.D. (Ronald Arce MD) Problem List: (1) Catheter-associated urinary tract infection ICD Codes: T83.511A - Infection and inflammatory reaction due to indwelling urethral catheter, initial encounter; N39.0 - Urinary tract infection, site not specified Status: Acute Plan: -IV fluids at 1.5 maintenance -Continue vancomycin 1 g every 12 hours -Continue Zosyn 4.5 g IV every 6 hours -Urine culture with no growth to date -Adjust antibiotics based on culture results -Blood cultures No growth to date At time of admission: pt met sepsis criteria with source; recently urethral catheterization, UA; dark red color, cloudy, large blood, moderate leuk esterase (2) Sepsis ICD Codes: A41.9 - Sepsis, unspecified organism Status: Acute Plan: Continue IV fluids, see below Continue sepsis protocol Trend lactic acid; 2.4-->0.8 See plan above At time of admission: Pulse 130, lactic acid 2.4+ evidence of source of infection (UTI) (3) Seizure disorder ICD Codes: G40.909 - Epilepsy, unspecified, not intractable, without status epilepticus Status: Chronic Plan: Continue Keppra 1 g per PEG tube twice a day (4) Hyponatremia ICD Codes: E87.1 - Hypo-osmolality and hyponatremia Status: Acute Plan: Sodium 130 on admission, improved to 135 today Continue IV fluids Follow-up BMP tomorrow (5) Chronic pain ICD Codes: G89.29 - Other chronic pain Status: Chronic Plan: Continue morphine liquid 5 mg per PEG tube every 4 hours Continue metoprolol 25 mg per PEG tube twice a day (6) fen/ppx Status: Acute Plan: Fluids: Normal saline at 110 mL per hour Electrolytes: C hyponatremia above, continue to monitor Nutrition per peg tube:Jevity 40 mL per hour, with free water flushes 120 mL every 6 hours. DVT prophylaxis: Patient previously with bleeding from the urethra, currently resolved, SCDs. Consider initiating chemoprophylaxis if there is no additional bleeding. (Elsa Flores MD R3) Problem Qualifiers (1) Catheter-associated urinary tract infection: (2) Chronic pain: Qualified Codes: G89.29 - Other chronic pain Elsa Flores MD R3 Feb 26, 2017 10:24 Ronald Arce MD Feb 26, 2017 16:26
--- NOTE | 2017-02-26 11:07 | HHI.PR ---
Subjective Patient symptoms today Pt seen and examined. Awake with clear urine. No fever. Objective Vital Signs Vital Signs Date Time Temp Pulse Resp B/P (MAP) Pulse Ox O2 Delivery O2 Flow Rate FiO2 02/26/17 09:00 96.4 93 16 142/73 (96) 99 02/26/17 07:00 60 02/26/17 06:00 80 02/26/17 05:00 86 02/26/17 04:29 20 02/26/17 04:00 97.4 89 20 108/65 (79) 100 02/26/17 04:00 68 02/26/17 03:00 73 02/26/17 02:31 97 Nasal Cannula 3.00 02/26/17 02:00 88 02/26/17 01:00 74 02/26/17 00:00 59 02/26/17 00:00 98.2 61 18 87/56 (66) 98 02/25/17 23:00 56 02/25/17 22:00 68 02/25/17 21:00 58 02/25/17 20:00 77 02/25/17 19:45 97.5 67 18 102/76 (85) 100 02/25/17 16:00 68 16 110/62 (78) 97 Nasal Cannula 2.00 02/25/17 14:01 99 Nasal Cannula 3.00 02/25/17 14:00 86 16 115/60 (78) 97 Nasal Cannula 3.00 02/25/17 13:00 76 18 105/57 (73) 97 Nasal Cannula 3.00 02/25/17 12:00 68 16 107/59 (75) 100 Nasal Cannula 3.00 02/25/17 11:11 100 Room Air 02/25/17 11:11 16 100 Room Air Intake & Output 02/26/17 02/26/17 07:00 19:00 Intake Total 3710 ml Output Total 0 ml Balance 3710 ml Intake IV Total 3050 ml Tube Feeding 360 ml Tube Irrigant 300 ml Output Tube Feeding Residual Discard 0 ml Result Diagram: 02/26/1752902/26/17529 Objective Remarks Abd:soft,nt,nd Deng: clear Medications and IVs Current Medications Medications (Trade) Dose Ordered Sig/Gino Route Start Time Stop Time Status Last Admin Sodium Chloride 1,000 ml @ 100 mls/hr Q10H IV 02/25/17 13:00 02/25/17 22:56 (NS Flush) 2 ml UNSCH PRN IV FLUSH 02/25/17 12:45 (NS Flush) 2 ml BID IV FLUSH 02/25/17 21:00 02/25/17 20:40 (Tylenol) 650 mg Q4H PRN PO 02/25/17 12:45 (Zofran Inj) 4 mg Q6H PRN IVP 02/25/17 12:45 (Narcan Inj) 0.4 mg UNSCH PRN IV PUSH 02/25/17 12:45 (Eloina-Colace) 1 tab BID PO 02/25/17 21:00 02/26/17 09:22 (Milk Of Magnesia Liq) 30 ml Q12H PRN PO 02/25/17 12:45 (Senokot) 17.2 mg Q12H PRN PO 02/25/17 12:45 (Dulcolax Supp) 10 mg DAILY PRN RECTAL 02/25/17 12:45 (Lactulose Liq) 30 ml DAILY PRN PO 02/25/17 12:45 Vancomycin HCl 1000 mg/Sodium Chloride 250 ml @ 250 mls/hr Q12H IV 02/25/17 22:00 02/26/17 09:39 Piperacillin Sod/ Tazobactam Sod 100 ml @ 200 mls/hr Q6H IV 02/25/17 17:00 02/26/17 04:12 (Keppra) 1,000 mg BID PEG 02/25/17 21:00 02/26/17 09:21 (Lopressor) 25 mg BID PEG 02/25/17 21:00 02/26/17 09:22 (Roxanol Liq) 5 mg Q4H PEG 02/25/17 15:00 02/26/17 06:00 Pharmacy Profile Note 0 ml @ 0 mls/hr UNSCH OTHER 02/25/17 14:00 Miscellaneous Information SPECIFIC LAB TO BE DRAWN:VANCOMYCIN TROUGH DATE TO... ONCE ONCE .XX 02/27/17 09:45 02/27/17 09:46 Assessment and Plan Assessment and Plan 36 y.o. male s/p cystolithopaxy with fever post op Continue IV abx Maintain deng for now Rx Constipation Suman Thurman DO Feb 26, 2017 11:07
[2017-02-26] MEDS ORDERED: SOD PHOSPHATE/SOD BIPHOSPHATE (ADULT) ENEMA 133ML RECTAL ONE (11:15)
[2017-02-26] MEDS: SODIUM CHLOR 0.9% 1000 ML INJ 1,000 ML IV SCH ×2 (15:41→22:05)
[2017-02-27] VITALS: BP 125/63; PULSE 58; RESP 16; TEMP 98; O2SAT 100
[2017-02-27] MEDS: PIPERACIL-TAZO 4.5 GM PREMIX 100 ML IV SCH ×3 (00:10→12:34)
[2017-02-27] MEDS: MORPHINE SULFATE ORAL SOLN 10 MG/0.5 ML SYRINGE PEG SCH ×2 (02:45→06:29)
[2017-02-27] MEDS: SODIUM CHLOR 0.9% 1000 ML INJ 1,000 ML IV SCH ×2 (03:20→15:00)
[2017-02-27 04:00] VITALS: BP 119/64; PULSE 52; RESP 16; TEMP 97.4; O2SAT 100
[2017-02-27 07:02] LABS: AUTOMATED NEUTROPHIL # 2.5 TH/MM3 (1.8-7.7); BASOPHIL % 0.9 % (0.0-2.0); EOSINOPHIL # 0.1 TH/MM3 (0-0.4); EOSINOPHIL % 2.5 % (0.0-4.0); HEMO FLAGS DIFF FINAL; LYMPH % 33.5 % (9.0-44.0); LYMPHOCYTE # 1.5 TH/MM3 (1.0-4.8); MEAN CELL VOLUME 97.4 FL (80.0-100.0); MEAN CORPUSCULAR HEMOGLOBIN 33.1 PG (27.0-34.0); MONO % 6.1 % (0.0-8.0); PLATELET COUNT 214 TH/MM3 (150-450); RED BLOOD COUNT 2.98 MIL/MM3 (4.50-5.90); RED CELL DISTRIBUTION WIDTH 13.4 % (11.6-17.2); WHITE BLOOD COUNT 4.4 TH/MM3 (4.0-11.0)
[2017-02-27 07:12] LABS: BICARBONATE 24.3 MEQ/L (21.0-32.0); POTASSIUM 3.8 MEQ/L (3.5-5.1)
[2017-02-27 07:25] VITALS: PULSE 55
--- NOTE | 2017-02-27 08:15 | HHI.PR ---
Subjective Patient symptoms today PT seen and examined. Urine clear. No fevers. Objective Vital Signs Vital Signs Date Time Temp Pulse Resp B/P (MAP) Pulse Ox O2 Delivery O2 Flow Rate FiO2 02/27/17 07:25 55 02/27/17 04:00 97.4 52 16 119/64 (82) 100 02/27/17 00:00 98.0 58 16 125/63 (83) 100 02/26/17 20:00 97.4 77 16 128/63 (84) 98 02/26/17 20:00 74 02/26/17 17:00 76 02/26/17 16:00 56 02/26/17 15:37 96.9 74 16 101/75 (84) 100 02/26/17 15:00 67 02/26/17 14:00 64 02/26/17 13:00 86 02/26/17 12:00 58 02/26/17 11:45 96.4 85 16 129/73 (91) 100 02/26/17 10:00 68 02/26/17 09:00 96.4 93 16 142/73 (96) 99 02/26/17 09:00 78 Intake & Output 02/27/17 02/27/17 07:00 19:00 Intake Total 3532 ml Output Total 1600 ml Balance 1932 ml Intake IV Total 1970 ml Tube Feeding 1562 ml Output Urine Total 1600 ml Result Diagram: 02/27/1752702/27/17527 Objective Remarks Abd:soft,nt,nd Deng: clear 02/27 Abd:soft,nt,nd Deng: clear Medications and IVs Current Medications Medications (Trade) Dose Ordered Sig/Gino Route Start Time Stop Time Status Last Admin Sodium Chloride 1,000 ml @ 100 mls/hr Q10H IV 02/25/17 13:00 02/27/17 03:20 (NS Flush) 2 ml UNSCH PRN IV FLUSH 02/25/17 12:45 (NS Flush) 2 ml BID IV FLUSH 02/25/17 21:00 02/26/17 22:04 (Tylenol) 650 mg Q4H PRN PO 02/25/17 12:45 (Zofran Inj) 4 mg Q6H PRN IVP 02/25/17 12:45 (Narcan Inj) 0.4 mg UNSCH PRN IV PUSH 02/25/17 12:45 (Eloina-Colace) 1 tab BID PO 02/25/17 21:00 02/26/17 22:06 (Milk Of Magnesia Liq) 30 ml Q12H PRN PO 02/25/17 12:45 (Senokot) 17.2 mg Q12H PRN PO 02/25/17 12:45 (Dulcolax Supp) 10 mg DAILY PRN RECTAL 02/25/17 12:45 (Lactulose Liq) 30 ml DAILY PRN PO 02/25/17 12:45 Vancomycin HCl 1000 mg/Sodium Chloride 250 ml @ 250 mls/hr Q12H IV 02/25/17 22:00 02/26/17 22:07 Piperacillin Sod/ Tazobactam Sod 100 ml @ 200 mls/hr Q6H IV 02/25/17 17:00 02/27/17 03:21 (Keppra) 1,000 mg BID PEG 02/25/17 21:00 02/26/17 22:06 (Lopressor) 25 mg BID PEG 02/25/17 21:00 02/26/17 22:06 (Roxanol Liq) 5 mg Q4H PEG 02/25/17 15:00 02/27/17 06:29 Pharmacy Profile Note 0 ml @ 0 mls/hr UNSCH OTHER 02/25/17 14:00 Miscellaneous Information SPECIFIC LAB TO BE DRAWN:VANCOMYCIN TROUGH DATE TO... ONCE ONCE .XX 02/27/17 09:45 02/27/17 09:46 Assessment and Plan Assessment and Plan 36 y.o. male s/p cystolithopaxy with fever post op Continue IV abx Maintain deng for now Rx Constipation 02/27 36 y.o. male s/p cystolithopaxy with fever post op Continue IV abx Maintain deng for now. Possible void trial in AM if not discharged today. Suman Thurman DO Feb 27, 2017 08:15
[2017-02-27] MEDS: SODIUM CHLORIDE 0.9% FLUSH 10 ML FLUSH IV FLUSH SCH (09:00)
[2017-02-27 09:06] VITALS: BP 156/89; PULSE 90; RESP 16; TEMP 97; O2SAT 100
[2017-02-27] MEDS: DOCUSATE SODIUM 50 MG/SENNA 8.6 MG TAB PO SCH (09:23)
[2017-02-27] MEDS: levETIRAcetam 500 MG TAB PEG SCH (09:23)
[2017-02-27] MEDS: METOPROLOL TARTRATE 25 MG TAB PEG SCH (09:23)
[2017-02-27] MEDS ORDERED: IBUPROFEN SUSP 100 MG/5 ML UDC PO PRN (09:30)
[2017-02-27] MEDS ORDERED: PHARMACY ORDERED LAB ONE (09:45)
[2017-02-27] MEDS: VANCOMYCIN INJ 1,000 MG in SODIUM CHLOR 0.9% 250 ML INJ 250 ML IV SCH (10:41)
[2017-02-27] MEDS ORDERED: MORPHINE SULFATE ORAL SOLN 10 MG/0.5 ML SYRINGE PEG PRN (11:00)
[2017-02-27 11:11] VITALS: BP 122/75; PULSE 56; RESP 16; TEMP 96.8; O2SAT 99
--- NOTE | 2017-02-27 11:27 | HHI.FPPN ---
Subjective Remarks No acute events overnight. Patient appears to be baseline, and sister is bedside. The sister states that the patient seems to be much better. He has not had any fevers or chills overnight. He has not expressed any pain. She is inquiring about when he can go home and with the plan is. He did get an enema overnight and had large bowel movements afterwards. (Radha Shah MD R2) Objective Vitals Vital Signs Date Time Temp Pulse Resp B/P (MAP) Pulse Ox O2 Delivery O2 Flow Rate FiO2 02/27/17 09:06 97.0 90 16 156/89 (111) 100 02/27/17 07:25 55 02/27/17 04:00 97.4 52 16 119/64 (82) 100 02/27/17 00:00 98.0 58 16 125/63 (83) 100 02/26/17 20:00 97.4 77 16 128/63 (84) 98 02/26/17 20:00 74 02/26/17 17:00 76 02/26/17 16:00 56 02/26/17 15:37 96.9 74 16 101/75 (84) 100 02/26/17 15:00 67 02/26/17 14:00 64 02/26/17 13:00 86 02/26/17 12:00 58 02/26/17 11:45 96.4 85 16 129/73 (91) 100 I/O 02/26/17 02/26/17 02/26/17 02/27/17 02/27/17 02/27/17 07:00 15:00 23:00 07:00 15:00 23:00 Intake Total 3460 ml 350 ml 2852 ml 3532 ml Output Total 1526 ml 1600 ml Balance 3460 ml 350 ml 1326 ml 1932 ml Intake IV Total 2800 ml 350 ml 2077 ml 1970 ml Tube Feeding 360 ml 775 ml 1562 ml Tube Irrigant 300 ml Output Urine Total 1525 ml 1600 ml Stool Total 1 ml (Radha Shah MD R2) Result Diagram: 02/27/1752702/27/17527 Objective Remarks GENERAL: Patient is laying in bed, appears to be resting comfortably he is nonverbal, does not appear to be in pain. SKIN: No rashes, ecchymoses or lesions. Cool and dry. HEAD: Right hemicraniotomy can be visualized, no change. No temporal or scalp tenderness. EYES: Pupils equal round and reactive. Extraocular motions intact. ENT: Nose without bleeding, purulent drainage or septal hematoma. Airway patent. NECK: Trachea midline. No JVD or lymphadenopathy. CARDIOVASCULAR: Regular rate and rhythm without murmurs, gallops, or rubs. RESPIRATORY: Clear to auscultation, anterior lung jasso auscultated. Breath sounds equal bilaterally. No wheezes, rales, or rhonchi. GASTROINTESTINAL: Abdomen soft, non-tender, nondistended. No hepato-splenomegaly , or palpable masses. No guarding. PEG tube in place. MUSCULOSKELETAL: Extremities without clubbing, cyanosis, or edema. No joint tenderness, effusion, or edema noted. No calf tenderness. Negative Homans sign bilaterally. NEUROLOGICAL: Awake and alert. Cannot assess cranial nerves, motor, or sensory. Pt not able to follow complex verbal commands. (Radha Shah MD R2) A/P Assessment and Plan 36 y/o M, s/p TBI with ICH and subsequent encephalopathy in 2014, status post cystoscopy for bladder stone removal, presents with clots and hematuria from catheter and fever. Patient meeting sepsis criteria on arrival; temp 100.5, heart rate 130, lactic acid 2.4, and positive UA. Discharge Planning Anticipate discharge today on PO abx, urology has cleared for d/c with deng. Will remove deng in office next week (Radha Shah MD R2) Attending Attestation Pt. examined and case discussed with resident physicians. I have read the above note and agree with the assessment and plan as discussed with me. I was involved in all medical decision making for this patient. Ronald Arce MD (Ronald Arce MD) Problem List: (1) Catheter-associated urinary tract infection ICD Codes: T83.511A - Infection and inflammatory reaction due to indwelling urethral catheter, initial encounter; N39.0 - Urinary tract infection, site not specified Status: Acute Plan: -IV fluids at 1.5 maintenance -Continue vancomycin 1 g every 12 hours -Continue Zosyn 4.5 g IV every 6 hours - Plan to discharge on Nitrofurantoin 100 BID x 4days to complete 7 day regimen -Urine culture with no growth 48 hours, previous urine culture in 2016; sensitive to nitrofurantoin -Blood cultures No growth to date At time of admission: pt met sepsis criteria with source; recently urethral catheterization, UA; dark red color, cloudy, large blood, moderate leuk esterase (2) Sepsis ICD Codes: A41.9 - Sepsis, unspecified organism Status: Resolved Plan: Resolved Trend lactic acid; 2.4-->0.8 At time of admission: Pulse 130, lactic acid 2.4+ evidence of source of infection (UTI) (3) Seizure disorder ICD Codes: G40.909 - Epilepsy, unspecified, not intractable, without status epilepticus Status: Chronic Plan: Continue Keppra 1 g per PEG tube twice a day (4) Hyponatremia ICD Codes: E87.1 - Hypo-osmolality and hyponatremia Status: Resolved Plan: Sodium 130 on admission, improved to 135 (5) Chronic pain ICD Codes: G89.29 - Other chronic pain Status: Chronic Plan: Continue morphine liquid 5 mg per PEG tube PRN q4h Continue metoprolol 25 mg per PEG tube twice a day (6) fen/ppx Status: Acute Plan: Fluids: Normal saline at 110 mL per hour Electrolytes: C hyponatremia above, continue to monitor Nutrition per peg tube:Jevity 40 mL per hour, with free water flushes 120 mL every 6 hours. DVT prophylaxis: Patient previously with bleeding from the urethra, currently resolved, SCDs. Consider initiating chemoprophylaxis if there is no additional bleeding. (Radha Shah MD R2) Problem Qualifiers (1) Catheter-associated urinary tract infection: (2) Chronic pain: Qualified Codes: G89.29 - Other chronic pain Radha Shah MD R2 Feb 27, 2017 10:39 Ronald Arce MD Feb 27, 2017 22:45
[2017-02-27] MEDS ORDERED: NITR1SUS2 PO ×2 (12:11→14:51)
--- NOTE | 2017-02-27 12:12 | HHI.DCPOC ---
Discharge Care Plan Diagnosis: (1) Sepsis (2) UTI (urinary tract infection) (3) Hematuria Goals to Promote Your Health * To prevent worsening of your condition and complications * To maintain your health at the optimal level Directions to Meet Your Goals Take your medications as prescribed Follow your dietary instruction Follow activity as directed Keep your appointments as scheduled Take your immunizations and boosters as scheduled If your symptoms worsen call your PCP, if no PCP go to Urgent Care Center or Emergency Room Smoking is Dangerous to Your Health. Avoid second hand smoke Call the 24-hour hour crisis hotline for domestic abuse at Radha Shah MD R2 Feb 27, 2017 12:12
[2017-02-27 16:28] VITALS: BP 126/77; PULSE 64; RESP 16; TEMP 97.4; O2SAT 97
== END 2017-02-27 18:48 | disposition home or self-care (01) | DRG 698 ==
LOC: NEPE 09:41 → NEDA 12:09 → HCIS 19:30
PROVIDERS: ADMIT Family Medicine; ATTEND Family Medicine
DX: T83.518A Infection and inflammatory reaction due to other urinary catheter, initial encounter (principal); A41.9 Sepsis, unspecified organism; E87.1 Hypo-osmolality and hyponatremia; Z93.1 Gastrostomy status; N39.0 Urinary tract infection, site not specified; Y84.6 Urinary catheterization as the cause of abnormal reaction of the patient, or of later complication, without mention of misadventure at the time of the procedure; Z87.820 Personal history of traumatic brain injury; G40.909 Epilepsy, unspecified, not intractable, without status epilepticus; Z98.890 Other specified postprocedural states; G89.29 Other chronic pain; R31.0 Gross hematuria; Z74.01 Bed confinement status; Z87.442 Personal history of urinary calculi; Z87.891 Personal history of nicotine dependence
CPT/HCPCS: 51702; 71010; 80048; 80053; 80202; 81001; 83605; 85025; 85610; 85730; 87040; 87081; 87086; 87641; 96361; 96365; 96367; 96375; J2270; J2543; J3370; J7030; J7050

== ENCOUNTER → 2017-03-26 | Day surgery (SDC) | payer MEDICAID ==
[~2017-03-26] VITALS: Ht 172.7 cm; Wt 59.0 kg
[~2017-03-26] MED LIST changes: +ACETAMINOPHEN/CODEINE 300 MG/30 MG TAB G-TUBE PRN; +ATROPINE SULFATE 1 MG/10 ML SYRINGE ONE; -BACT800T5 PO; +CHLORHEXIDINE GLUCONATE 2 % 1 PACK (2 CLOTHS) TOPICAL PRN; +DEXAMETHASONE SOD PHOS 4 MG/ML VIAL IV ONE; +DO NOT ADM ANY ANTICOAGULANT DRUGS PRN; +FIBE625T10 PEG; +GLYCOPYRROLATE 1 MG/5 ML SYRINGE IV PUSH ONE; +INSULIN HUMAN REGULAR 1,000 UNITS/10 ML VIAL SQ PRN; +LACTATED RINGER'S 1000 ML IV PRN; +LIDOCAINE HCL 1% PF 5 ML AMPULE OTHER ONE; +METOPROLOL TARTRATE 25 MG TAB PO PRN; +MORPHINE SULFATE 2 MG/ML INJ IV PRN; +NEOSTIGMINE 3 MG/3 ML SYR IV ONE; +NITROGLYCERIN INJ 0 ML ONE; +ONDANSETRON HCL 4 MG/2 ML VIAL IV PRN; +ONDANSETRON HCL 4 MG/2 ML VIAL IV PUSH ONE; +PHENYLEPH/NS 1000 MCG/10 ML SYR IV ONE; +POLY17PO3 PEG; +POVIDONE IODINE 5% (ANTISEPSIS KIT) 4 APPLICATIONS EACH NARE PRN; +PROPOFOL 200 MG/20 ML AMP IV ONE; +PROPOFOL 500 MG/50 ML INJ 50 ML ONE; +ROCURONIUM INJ 50 MG/5 ML SYRINGE IV PUSH ONE; +SODIUM CHLORID 0.9% 500 ML IV PRN; +SODIUM NITROPRUSSIDE 50 MG/2 ML VIAL ONE; +ceFAZolin 1,000 MG/NS 100 ML IV SCH; +ePHEDrine/NS 25 MG/5 ML SYR IV ONE
--- NOTE | 2017-03-26 07:39 | RADRPT ---
EXAM DATE/TIME: 03/26/2017 07:22 [facility] COMPARISON: CT ABDOMEN & PELVIS W/O CONTRAST, May 15, 2016, 23:34. INDICATIONS : Pre-op Left ESWL. MEDICAL HISTORY : None. SURGICAL HISTORY : PEG tube. ENCOUNTER: Initial ACUITY: 1 day PAIN SCORE: Non-responsive. LOCATION: Bilateral Abdomen. FINDINGS: Supine view of the abdomen was performed. The abdominal bowel gas pattern is normal. PEG tube is not ed in place. Renal calculi are not clearly demonstrated. No abnormal massesor organomegaly are seen. The osseous structures are unremarkable. CONCLUSION: 1. PEG tube 2. No acute process 3. Renal calculi not clearly identified. Junaid Gallardo MD on March 26, 2017 at 7:35 Board Certified Radiologist. This report was verified electronically.
[2017-03-26 08:26] LABS: AUTOMATED NEUTROPHIL # 3.6 TH/MM3 (1.8-7.7); BASOPHIL % 0.8 % (0.0-2.0); EOSINOPHIL % 0.7 % (0.0-4.0); HEMATOCRIT 37.8 % (39.0-51.0); HEMO FLAGS DIFF FINAL; LYMPHOCYTE # 1.6 TH/MM3 (1.0-4.8); MEAN CELL VOLUME 94.4 FL (80.0-100.0); MEAN CORPUSCULAR HEMOGLOBIN 33.3 PG (27.0-34.0); MEAN CORPUSCULAR HGB CONC 35.2 % (32.0-36.0); MONO % 7.1 % (0.0-8.0); NEUT % 63.4 % (16.0-70.0); PLATELET COUNT 308 TH/MM3 (150-450); RED CELL DISTRIBUTION WIDTH 13.4 % (11.6-17.2); WHITE BLOOD COUNT 5.6 TH/MM3 (4.0-11.0)
--- NOTE | 2017-03-26 10:03 | PD.OP ---
Operative Report Date of Surgery: Mar 26, 2017 Preoperative Diagnosis: 7 mm left lower pole stone Postoperative Diagnosis: Same Procedure: Left extracorporeal shockwave lithotripsy Anesthesia: Gen. LMA Surgeon: Suman Thurman Nailing Machine Operator(s): None Resident Surgeon: None Operation and Findings: 36-year-old male with history of traumatic brain injury with history of nephrolithiasis. Patient underwent cystoscopic litholapaxy in the past and also had a 7 mm left lower pole stone. Family elected to undergo left extraportal shockwave lithotripsy. Risk and benefits were discussed preoperatively and they were willing to proceed. Patient is brought to the operating room and identified by myself as Fede Call. He is placed in the supine position, received preprocedure antibiotics and general LMA anesthesia was administered. Under fluoroscopic and ultrasound guidance the stone was localized and ESWL therapy commenced. Patient received a total of 2500 shocks and good fragmentation of the stone was visualized under fluoroscopic imaging. Patient tolerated the procedure well and was transferred to the recovery room in stable condition. Patient will follow-up in one month and had a KUB x-ray prior. Suman Thurman DO Mar 26, 2017 10:03
[2017-03-26 11:00] VITALS: BP 113/74; PULSE 68; RESP 18; TEMP 97.5; O2SAT 100
== END | disposition home or self-care (01) ==
LOC: HSDC 06:51
PROVIDERS: ATTEND Urology
DX: N20.1 Calculus of ureter (principal); N31.9 Neuromuscular dysfunction of bladder, unspecified; R32 Unspecified urinary incontinence; I10 Essential (primary) hypertension; G82.50 Quadriplegia, unspecified; Z87.820 Personal history of traumatic brain injury
CPT/HCPCS: 00872; 50590; 74000; 85025; J0690; J1100; J2370; J2405; J2710; J3010; J7120; J0461